=== PATIENT | male | born 1970 | race Caucasian/White ===

== ENCOUNTER 2020-06-15 08:18 | Emergency (ER) | payer BC ==
[2020-06-15] MEDS ORDERED: Sodium Chloride 0.9% 1000 ML 1,000 ML IV STA (08:42)
[2020-06-15 08:47] LABS: BASOPHIL % 0.3 % (0.0-0.4); Basophil (Absolute #) 0.04 (0-0.4); Eosinophil % 0.8 % (0.00-5.0); Eosinophil (Absolute #) 0.11 (0-0.5); Hemoglobin 14.6 gm/dl (12.5-18.0); Lymphocyte (Absolute #) 0.97 (1.0-4.6); Lymphocytes % 7.4 % (24.0-44.0); Mean Cell Volume 101.6 fl (78-100); Mean Corpuscular Hemoglobin 33.7 pg (26-32); Mean Corpuscular Hgb Concent. 33.2 g/dl (32-36); Mean Platelet Volume 9.3 fl (7.5-11.0); Monocytes % 7.6 % (0.0-12.0); Neutrophil % 83.9 % (36.0-66.0); Platelet Count 303 K/mm3 (150-450); Red Blood Count 4.33 M/mm3 (4.1-5.6); Red Cell Distribution Width 12.9 % (11.5-14.0); White Blood Count 13.1 K/mm3 (4.0-10.5)
[2020-06-15] MEDS ORDERED: Sodium Chloride 0.9% 1000 ML 1,000 ML ONE (08:52)
[2020-06-15] MEDS ORDERED: TYLENOL 325 MG PO ONE (08:52)
[2020-06-15] MEDS ORDERED: TYLENOL 325 MG ONE (08:52)
[2020-06-15 08:58] LABS: ALBUMIN 4.5 g/dL (3.5-5.0); ALKALINE PHOSPHATASE 108 U/L (38-126); ANION GAP 12.4 MEQ/L (5-15); BLOOD UREA NITROGEN 10 mg/dL (9-20); CHLORIDE 101 mmol/L (98-107); Calcium 10.1 mg/dL (8.4-10.2); Carbon Dioxide 25 mmol/L (22-30); Creatinine 1 0.85 mg/dL (0.66-1.25); EST GLOMERULAR FILTRATION RATE > 60.0 ML/MIN; Glucose 103 mg/dL (74-106); Potassium 4.2 mmol/L (3.5-5.1); SGOT/AST 27 U/L (17-59); SGPT/ALT 26 U/L (0-50); SODIUM 134 mmol/L (137-145); Total Protein 7.7 g/dL (6.3-8.2)
--- NOTE | 2020-06-15 08:58 | ERPHSYRPT ---
- History of Present Illness Time Seen by Provider: 06/15/20 08:30 Source: patient Exam Limitations: no limitations Patient Subjective Stated Complaint: diarrhea, chills last night, possible seizure like feelings this am Triage Nursing Assessment: pt to ED c/o diarrhea and chills last night and this am. denies abd pain. few episodes diarreha reported. also reports hx absent seizures "I'm up and walking around but out of it." denies COVID exposure or emesis today. bowel sounds active in all quads. Physician History: Patient is a 50-year-old male presents to our emergency department with complaints of diarrhea. Patient feels dehydrated with a dry mouth. Symptoms started last night. Patient has history of seizures and and is experiencing headache. Patient is concerned that this may lower his seizure threshold. No seizures reported. Patient denies pain. Diarrhea is nonbilious nonbloody. No chest pain or shortness of breath. No syncope. No urinary symptomology no nausea patient requesting Tylenol and water. Patient states he feels much better at this time. Patient has history of anxiety and requires Ativan. Patient believes that his symptomology may have been related to anxiety. Patient states that he was experiencing chills. However this has improved as well. No fever. Patient voices no other complaints or concerns at this time. No obvious Covid exposures however patient agrees to a Covid screening test. Patient denies history of Covid. Timing/Duration: yesterday Severity: moderate Modifying Factors: Improves With: nothing Associated Symptoms: denies symptoms Allergies/Adverse Reactions: oxcarbazepine [From Trileptal] Allergy (Intermediate, Verified 06/15/20 08:36) Swelling Home Medications: Brivaracetam [Briviact] 100 mg PO BID 06/15/20 [History] Escitalopram Oxalate 10 mg [Lexapro 10 MG] 30 mg PO DAILY 06/15/20 [History] Lorazepam 0.5 mg [Ativan 0.5 MG] 0.5 mg PO DAILY PRN PRN 06/15/20 [History] lamoTRIgine [Lamictal Xr] 600 mg PO DAILY 06/15/20 [History] Hx Tetanus, Diphtheria Vaccination/Date Given: Yes Hx Influenza Vaccination/Date Given: Yes Hx Pneumococcal Vaccination/Date Given: No Immunizations Up to Date: Yes Travel Risk - International Travel Have you traveled outside of the country in past 3 weeks: No - Coronavirus Screening Are you exhibiting any of the following symptoms?: Yes Symptoms: Vomiting/Diarrhea Close contact with a COVID-19 positive Pt in past 14-21 Days: No - Vaccine Status Have you recieved a Covid-19 vaccination: No - Review of Systems Constitutional: No Symptoms, No Fever, No Chills Eyes: No Symptoms Ears, Nose, & Throat: No Symptoms Respiratory: No Symptoms, No Cough, No Dyspnea Cardiac: No Symptoms, No Chest Pain, No Edema, No Syncope Abdominal/Gastrointestinal: No Symptoms, No Abdominal Pain, No Nausea, No Vomiting, No Diarrhea Genitourinary Symptoms: No Symptoms, No Dysuria Musculoskeletal: No Symptoms, No Back Pain, No Neck Pain Skin: No Symptoms, No Rash Neurological: No Symptoms, No Dizziness, No Focal Weakness, No Sensory Changes Psychological: No Symptoms Endocrine: No Symptoms Hematologic/Lymphatic: No Symptoms Immunological/Allergic: No Symptoms All Other Systems: Reviewed and Negative - Past Medical History Pertinent Past Medical History: Yes Neurological History: Seizures Psycho-Social History: Depression Other Medical History: HEP C 1990s - Past Surgical History Past Surgical History: Yes Musculoskeletal: Orthopedic Surgery Other Surgical History: L knee - Social History Smoking Status: Never smoker Exposure to second hand smoke: No Drug Use: none Patient Lives Alone: No - Nursing Vital Signs Nursing Vital Signs: Initial Vital Signs Temperature 98.5 F 06/15/20 08:26 Pulse Rate 100 H 06/15/20 08:26 Respiratory Rate 18 06/15/20 08:26 Blood Pressure 126/87 06/15/20 08:26 O2 Sat by Pulse Oximetry 97 06/15/20 08:26 Pain Scale Pain Intensity 0 - Physical Exam General Appearance: no apparent distress, alert Eye Exam: PERRL/EOMI, eyes nml inspection Ears, Nose, Throat Exam: normal ENT inspection, TMs normal, pharynx normal, moist mucous membranes Neck Exam: normal inspection, non-tender, supple, full range of motion Respiratory Exam: normal breath sounds, lungs clear, No respiratory distress Cardiovascular Exam: regular rate/rhythm, normal heart sounds, normal peripheral pulses Gastrointestinal/Abdomen Exam: soft, normal bowel sounds, No tenderness, No mass Back Exam: normal inspection, normal range of motion, No CVA tenderness, No vertebral tenderness Extremity Exam: normal inspection, normal range of motion, pelvis stable Neurologic Exam: alert, oriented x 3, cooperative, normal mood/affect, nml cerebellar function, nml station & gait, sensation nml, No motor deficits Skin Exam: normal color, warm, dry, No rash Lymphatic Exam: No adenopathy SpO2: 97 - Course Nursing assessment & vital signs reviewed: Yes EKG Interpreted by Me: RATE ([id number]), Sinus Rhythm, NORMAL AXIS Ordered Tests: Active Orders 24 hr Category Date Time Status EKG-ER Only STAT Care 06/15/20 09:13 Active IV Insertion STAT Care 06/15/20 08:42 Active CBC W DIFF Stat Lab 06/15/20 08:30 Completed CMP Stat Lab 06/15/20 08:30 Completed MAG [MAGNESIUM] Stat Lab 06/15/20 08:30 Completed TROPONIN Q3H Lab 06/15/20 08:30 Completed TROPONIN Q3H Lab 06/15/20 12:15 Ordered TROPONIN Q3H Lab 06/15/20 15:15 Ordered TROPONIN Q3H Lab 06/15/20 18:15 Ordered TROPONIN Q3H Lab 06/15/20 21:15 Ordered Medication Summary Discontinued Medications Generic Name Dose Route Start Last Admin Trade Name Freq PRN Reason Stop Dose Admin Acetaminophen 975 mg 06/15/20 08:52 06/15/20 08:55 Tylenol 325 Mg PO 06/15/20 08:53 975 mg STAT ONE Administration Acetaminophen Confirm 06/15/20 08:52 Tylenol 325 Mg Administered 06/15/20 08:53 Dose 975 mg .ROUTE .STK-MED ONE Sodium Chloride 1,000 mls @ 999 mls/hr 06/15/20 08:42 06/15/20 08:55 Sodium Chloride 0.9% 1000 Ml IV 06/15/20 09:42 999 mls/hr .Q1H1M STA Administration Sodium Chloride Confirm 06/15/20 08:52 Sodium Chloride 0.9% 1000 Ml Administered 06/15/20 08:53 Dose 1,000 mls @ ud .ROUTE .STK-MED ONE Lab/Rad Data: Laboratory Result Diagrams 06/15/20 08:30 06/15/20 08:30 Laboratory Results 06/15/20 06/15/20 06/15/20 Range/Units 08:30 08:30 08:30 WBC (4.0-10.5) K/mm3 RBC (4.1-5.6) M/mm3 Hgb (12.5-18.0) gm/dl Hct (42-50) % MCV (78-100) fl MCH (26-32) pg MCHC (32-36) g/dl RDW (11.5-14.0) % Plt Count (150-450) K/mm3 MPV (7.5-11.0) fl Gran % (36.0-66.0) % Eos # (Auto) (0-0.5) Absolute Lymphs (auto) (1.0-4.6) Absolute Monos (auto) (0.0-1.3) Lymphocytes % (24.0-44.0) % Monocytes % (0.0-12.0) % Eosinophils % (0.00-5.0) % Basophils % (0.0-0.4) % Absolute Granulocytes (1.4-6.9) Basophils # (0-0.4) Sodium 134 L (137-145) mmol/L Potassium 4.2 (3.5-5.1) mmol/L Chloride 101 (98-107) mmol/L Carbon Dioxide 25 (22-30) mmol/L Anion Gap 12.4 (5-15) MEQ/L BUN 10 (9-20) mg/dL Creatinine 0.85 (0.66-1.25) mg/dL Estimated GFR > 60.0 ML/MIN Glucose 103 (74-106) mg/dL Calcium 10.1 (8.4-10.2) mg/dL Magnesium 1.9 (1.6-2.3) mg/dL Total Bilirubin 0.70 (0.2-1.3) mg/dL AST 27 (17-59) U/L ALT 26 (0-50) U/L Alkaline Phosphatase 108 (38-126) U/L Troponin I < 0.012 (0.000-0.034) ng/mL Serum Total Protein 7.7 (6.3-8.2) g/dL Albumin 4.5 (3.5-5.0) g/dL 06/15/20 Range/Units 08:30 WBC 13.1 H (4.0-10.5) K/mm3 RBC 4.33 (4.1-5.6) M/mm3 Hgb 14.6 (12.5-18.0) gm/dl Hct 44.0 (42-50) % MCV 101.6 H (78-100) fl MCH 33.7 H (26-32) pg MCHC 33.2 (32-36) g/dl RDW 12.9 (11.5-14.0) % Plt Count 303 (150-450) K/mm3 MPV 9.3 (7.5-11.0) fl Gran % 83.9 H (36.0-66.0) % Eos # (Auto) 0.11 (0-0.5) Absolute Lymphs (auto) 0.97 L (1.0-4.6) Absolute Monos (auto) 1.00 (0.0-1.3) Lymphocytes % 7.4 L (24.0-44.0) % Monocytes % 7.6 (0.0-12.0) % Eosinophils % 0.8 (0.00-5.0) % Basophils % 0.3 (0.0-0.4) % Absolute Granulocytes 11.00 H (1.4-6.9) Basophils # 0.04 (0-0.4) Sodium (137-145) mmol/L Potassium (3.5-5.1) mmol/L Chloride (98-107) mmol/L Carbon Dioxide (22-30) mmol/L Anion Gap (5-15) MEQ/L BUN (9-20) mg/dL Creatinine (0.66-1.25) mg/dL Estimated GFR ML/MIN Glucose (74-106) mg/dL Calcium (8.4-10.2) mg/dL Magnesium (1.6-2.3) mg/dL Total Bilirubin (0.2-1.3) mg/dL AST (17-59) U/L ALT (0-50) U/L Alkaline Phosphatase (38-126) U/L Troponin I (0.000-0.034) ng/mL Serum Total Protein (6.3-8.2) g/dL Albumin (3.5-5.0) g/dL - Progress Progress: improved Progress Note: Patient feels better. IV fluids infused. Vital stable. Mildly elevated WBC at 13.1. Labs otherwise within normal limits. No nidus of infection observed at this time. Patient currently afebrile. Will obtain a outpatient Covid test. Patient will be on quarantine pending his results. Patient agrees to follow-up with his primary care doctor within 48 hours for reevaluation. Patient voices no other complaints or concerns at this time. EKG normal sinus rhythm. Troponin negative. 06/15/20 09:08 06/15/20 09:44 Counseled pt/family regarding: lab results, diagnosis, need for follow-up - Departure Departure Disposition: Home Clinical Impression: Diarrhea, Migraine Condition: Stable Critical Care Time: No Additional Instructions: Discharge/Care Plan KAYY BROOKE was seen on 06/15/20 in the Emergency Room. The patient was counseled regarding Diagnosis,Lab results, Imaging studies, need for follow up and when to return to the Emergency Room. Prescriptions given: Discharge Note I have spoken with the patient and/or caregivers. I have explained the patient's condition, diagnosis and treatment plan based on the information available to me at this time. I have answered the patient's and/or caregiver's questions and addressed any concerns. The patient and/or caregivers have as good understanding of the patient's diagnosis, condition and treatment plan as can be expected at this point. The vital signs have been stable. The patient's condition is stable and appropriate for discharge from the emergency department. The patient will pursue further outpatient evaluation with the primary care physician or other designated or consulting physician as outlined in the discharge instructions. The patient and/or caregivers are agreeable to this plan of care and follow-up instructions have been explained in detail. The patient and/or caregivers have received these instruction. The patient/and or caregivers are aware that any significant change in condition or worsening of symptoms should prompt an immediate return to this or the closest emergency department or call 911.
[2020-06-15 10:21] VITALS: BP 103/67; PULSE 70; O2SAT 98
== END 2020-06-15 10:23 | disposition home or self-care (01) ==
LOC: ED 08:18
DX: R19.7 Diarrhea, unspecified (principal); G43.909 Migraine, unspecified, not intractable, without status migrainosus
CPT/HCPCS: 36000; 36415; 80053; 83735; 84484; 85025; 93005; 96360; 99284; U0003; A9270-GY